=== PATIENT | male | born 1955 | race Caucasian/White ===

== ENCOUNTER 2019-07-09 13:30 | Inpatient (IN) | payer MEDICARE, OTHER ==
[~2019-07-09] VITALS: Ht 182.9 cm; Wt 83.1 kg
[2019-07-09] MEDS ORDERED: ASPI81TA85 PO (13:40)
[2019-07-09] MEDS ORDERED: AMLO10TA PO (13:40)
--- NOTE | 2019-07-09 14:27 | REP ---
Clinical: Possible acute cerebrovascular accident . Comparison: None . Findings: The ventricles, sulci, and cisterns are normal in position and appearance. Burr-white differentiation is maintained. No acute intracranial hemorrhage, mass/mass effect, pathology or trauma/injury. No evidence for acute infarction. No extra-axial fluid collection. Calvarium is intact. Paranasal sinuses and mastoid air cells are clear. Impression: Normal noncontrast head CT. No evidence for acute intracranial pathology or trauma/injury. Electronically Signed by Jose Luis Winston MD 07/09/2019 02:19 P
[2019-07-09 14:31] LABS: BASO # 0.1 10^3/uL (0.0-0.2); EOS # 0.1 10^3/uL (0.0-0.5); EOS % 1.6 % (0.0-3.0); HEMATOCRIT 44.6 % (42.0-52.0); HEMOGLOBIN 15.1 g/dl (13.5-17.5); LYMPH % 32.5 % (24.0-44.0); MEAN CORPUSCULAR HEMOGLOBIN 32.9 pg (27.0-33.0); MEAN CORPUSCULAR HGB CONC 33.9 g/dl (32.0-36.5); MEAN CORPUSCULAR VOLUME 97.2 fl (80.0-96.0); MONO # 0.5 10^3/uL (0.0-0.8); MONO % 8.5 % (0.0-5.0); NEUTROPHILS # 3.5 10^3/uL (1.5-8.5); NEUTROPHILS % 56.1 % (36.0-66.0); PLATELET COUNT, AUTOMATED 202 10^3/uL (150-450); RED BLOOD COUNT 4.59 10^6/uL (4.30-6.10); WHITE BLOOD COUNT 6.2 10^3/uL (4.0-10.0)
[2019-07-09 14:42] LABS: INR 1.05; PROTHROMBIN TIME 13.4 SECONDS (11.8-14.0)
[2019-07-09 14:43] LABS: PARTIAL THROMBOPLASTIN TIME 28.1 SECONDS (25.0-38.4)
[2019-07-09] MEDS ORDERED: ASPIRIN 325 MG TAB PO ONE (14:45)
--- NOTE | 2019-07-09 14:58 | REP ---
Clinical: Acute cerebrovascular accident . Comparison: None . Findings: The mediastinum and cardiac silhouette are stable and within normal limits for portable technique. The lung richardson are clear without acute consolidation, effusion, or pneumothorax. Skeletal structures are intact. Impression: No acute cardiopulmonary process appreciated. Electronically Signed by Jose Luis Winston MD 07/09/2019 02:50 P
[2019-07-09 15:11] LABS: BLOOD UREA NITROGEN 19 MG/DL (7-18); CALCIUM LEVEL 8.9 MG/DL (8.8-10.2); CARBON DIOXIDE LEVEL 28 MEQ/L (21-32); CHLORIDE LEVEL 104 MEQ/L (98-107); CK-MB VALUE MASS 1.8 NG/ML (<3.6); CPK CREATINE PHOSPHOKINASE 133 U/L (39-308); GLOMERULAR FILTRATION RATE > 60.0 (>49); GLUCOSE, FASTING 121 MG/DL (70-100); MB/CK RELATIVE INDEX 1.35 (< OR =4); POTASSIUM SERUM 3.8 MEQ/L (3.5-5.1); SODIUM LEVEL 139 MEQ/L (136-145); TROPONIN I < 0.02 NG/ML (< 0.10)
--- NOTE | 2019-07-09 16:50 | REPVR ---
EXAM: MR Head Without Contrast EXAM DATE/TIME: 07/09/2019 4:29 PM CLINICAL HISTORY: 64 years old, male; Numbness / parasthesia; Patient HX: Left arm numbness; Additional info: CVA TECHNIQUE: Imaging protocol: MR of the head without contrast. COMPARISON: CT Head without contrast 07/09/2019 2:09 PM FINDINGS: Brain: Multiple foci of T2 lengthening are demonstrated in the subcortical, periventricular and centrum semiovale white matter consistent with age-related small vessel gliosis. Increased signal in the subcortical and centrum semi-ovale white matter symmetrically and bilaterally and be seen in association with global white matter ischemia and should be correlated clinically. Ventricles: Normal. No ventriculomegaly. Bones/joints: Unremarkable. Soft tissues: Normal. Sinuses: Normal as visualized. No acute sinusitis. Mastoid air cells: Normal as visualized. No mastoid effusion. Orbits: Unremarkable. IMPRESSION: 1. Multiple foci of T2 lengthening are demonstrated in the subcortical, periventricular and centrum semiovale white matter consistent with age-related small vessel gliosis. 2. Increased signal in the subcortical and centrum semi-ovale white matter symmetrically and bilaterally and be seen in association with global white matter ischemia and should be correlated clinically. Electronically signed by: Niko Fatima On 07/09/2019 16:50:19 PM
--- NOTE | 2019-07-09 16:56 | REPVR ---
EXAM: MR Angiogram Head Without Contrast, Arteries EXAM DATE/TIME: 07/09/2019 4:21 PM CLINICAL HISTORY: 64 years old, male; Paralysis, transient of limb; Patient HX: Left arm numbness; Additional info: CVA TECHNIQUE: Imaging protocol: MR angiogram head without contrast. Exam focused on the arteries. 3D rendering: MIP reconstructed images were created and reviewed. COMPARISON: CT Head without contrast 07/09/2019 2:09 PM FINDINGS: Right internal carotid artery: Unremarkable. Intracranial segment is patent with no significant stenosis. No aneurysm. Right anterior cerebral artery: Unremarkable. No occlusion or significant stenosis. No aneurysm. Right middle cerebral artery: Unremarkable. No occlusion or significant stenosis. No aneurysm. Right posterior cerebral artery: Mild to moderate stenosis in the P1 segment of the right posterior cerebral artery. Right vertebral artery: Unremarkable. No occlusion or significant stenosis. No aneurysm. Left internal carotid artery: Unremarkable. Intracranial segment is patent with no significant stenosis. No aneurysm. Left anterior cerebral artery: Unremarkable. No occlusion or significant stenosis. No aneurysm. Left middle cerebral artery: Moderate stenosis in the distal M1 segment of the left middle cerebral artery. Left posterior cerebral artery: Unremarkable. No occlusion or significant stenosis. No aneurysm. Left vertebral artery: Unremarkable. No occlusion or significant stenosis. No aneurysm. Basilar artery: Unremarkable. No occlusion or significant stenosis. No aneurysm. IMPRESSION: 1. Mild to moderate stenosis in the P1 segment of the right posterior cerebral artery. 2. Moderate stenosis in the distal M1 segment of the left middle cerebral artery. Electronically signed by: Niko Fatima On 07/09/2019 16:55:58 PM
[2019-07-09] MEDS ORDERED: ENOXAPARIN 100MG/1ML SYRINGE (J1650) SC ONE (18:00)
--- NOTE | 2019-07-09 18:04 | HPEPDOC ---
General Date of Admission Date of Service: Jul 09, 2019 Chief Complaint The patient is a 64-year-old male admitted with a reason for visit of Arm Numbness. History of Present Illness 64m with sruthi and htn, presents with numbness. Pt reports transient numbness in his left arm and left face. This lasted about 5 minutes occurring just prior to arrival in the ED. He otherwise has been in good health. He is active with no difficulties exerting himself. He is a former smoker and drinks beer moderately. He denies chest pain, sob, palpitations, and edema. a full ROS was performed and negative except as above. Home Medications Scheduled Amlodipine Besylate (Norvasc) 10 Mg Tablet, 10 MG PO DAILY, (Reported) Aspirin (Aspir 81) 81 Mg Tablet.dr, 81 MG PO DAILY, (Reported) Allergies Coded Allergies: formaldehyde (Verified Allergy, Unknown, skin patch testing, 07/09/19) skin patch testing Family History Significant Family History: No pertinent family hx Social History * Smoker: former Smoker Alcohol: occationally Drugs: denies A-FIB/CHADSVASC A-FIB History Current/History of A-Fib/PAF?: Yes Current PO Anticoag Therapy: No Age/Risk Factor Scoring CHADSVASC: CHADSVASC Response (Comments) Value Age Risk Factor Age 65-74 years old 1 Gender Risk Factor Male 0 Hx of CHF No 0 Hx of HTN Yes 1 Hx of Stroke/TIA/or VTE Yes 2 Hx of Diabetes No 0 Hx of Vascular Disease No 0 Total 4 Treatment Treatment ordered: Heparin IV bridge Therapy Physical Examination General Exam: Positive: Alert, No Acute Distress Eye Exam: Positive: PERRLA, Conjunctiva & lids normal, EOMI; Negative: Sclera icteric ENT Exam: Positive: Atraumatic, Mucous membr. moist/pink, Pharynx Normal Neck Exam: Positive: Supple; Negative: JVD, thyromegaly Chest Exam: Positive: Clear to auscultation, Normal air movement Heart Exam: Positive: Rate Normal, Regular Rhythm, Normal S1, Normal S2; Negative: Murmurs, Rubs Telemetry: Positive: No significant arrhythmia Abdomen Exam: Positive: Normal bowel sounds, Soft; Negative: Tenderness, Hepatospenomegaly Extremity Exam: Positive: Normal pulses; Negative: Clubbing, Cyanosis, Edema Skin Exam: Positive: Nl turgor and temperature; Negative: Breakdown, Lesion Neuro Exam: Positive: Normal Gait, Normal Speech, Cranial Nerves 3-12 NL, Reflexes 2+ Psych Exam: Positive: Mental status NL, Mood NL, Oriented x 3 Vital Signs Vital Signs Date Time Temp Pulse Resp B/P (MAP) Pulse Ox O2 Delivery O2 Flow Rate FiO2 07/09/19 16:50 81 99 07/09/19 16:49 139/75 (96) 07/09/19 13:31 97.6 16 Room Air Laboratory Data Labs 24H Laboratory Tests 2 07/09/19 14:18: Immature Granulocyte % (Auto) 0.3, White Blood Count 6.2, Red Blood Count 4.59, Hemoglobin 15.1, Hematocrit 44.6, Mean Corpuscular Volume 97.2H, Mean Corpuscular Hemoglobin 32.9, Mean Corpuscular Hemoglobin Concent 33.9, Red Cell Distribution Width 13.1, Platelet Count 202, Neutrophils (%) (Auto) 56.1, Lymph ocytes (%) (Auto) 32.5, Monocytes (%) (Auto) 8.5H, Eosinophils (%) (Auto) 1.6, Basophils (%) (Auto) 1.0, Neutrophils # (Auto) 3.5, Lymphocytes # (Auto) 2.0, Monocytes # (Auto) 0.5, Eosinophils # (Auto) 0.1, Basophils # (Auto) 0.1, Nucleated Red Blood Cells % (auto) 0.0, Prothrombin Time 13.4, Prothromb Time International Ratio 1.05, Activated Partial Thromboplast Time 28.1, Bedside Glucose (Misc Panel) 111, Anion Gap 7L, Glomerular Filtration Rate > 60.0, Blood Urea Nitrogen 19H, Creatinine 1.00, Sodium Level 139, Potassium Level 3.8, Chloride Level 104, Carbon Dioxide Level 28, Calcium Level 8.9, Total Creatine Kinase 133, Creatine Kinase MB 1.8, Creatine Kinase MB Relative Index 1.35, Trop onin I < 0.02 CBC/BMP Laboratory Tests 07/09/19 14:18 Red Blood Count 4.59, Mean Corpuscular Volume 97.2 H, Mean Corpuscular Hemoglobin 32.9, Mean Corpuscular Hemoglobin Concent 33.9, Red Cell Distribution Width 13.1, Neutrophils (%) (Auto) 56.1, Lymphocytes (%) (Auto) 32.5, Monocytes (%) (Auto) 8.5 H, Eosinophils (%) (Auto) 1.6, Basophils (%) (Auto) 1.0, Neutrophils # (Auto) 3.5, Lymphocytes # (Auto) 2.0, Monocytes # (Auto) 0.5, Eosinophils # (Auto) 0.1, Basophils # (Auto) 0.1, Calcium Level 8.9, Total Creatine Kinase 133 Assessment/Plan 64m p/w TIA TIA symptoms have resolved CT and MRI unremarkable will check echo and carotid US check lipid panel and a1c cardiac monitoring neurochecks ABCD2=2 (low risk) consider statin after lipid panel is drawn new onset afib asymptomatic rate controlled without any intervention CHADS-Vasc=4 started on lovenox, conver to oral agent prior to dc echo and tsh pending htn holding norvasc for now Plan / VTE VTE Prophylaxis Ordered?: Yes TITI JEAN BAPTISTE MD Jul 09, 2019 18:04
--- NOTE | 2019-07-09 19:37 | ECGEPIP ---
[facility] - ED Test Date: 2019-07-09 Pat Name: ANETA MOSCOSO Department: Room: - Gender: Male Civil Design Technician: dedrick : [id number] Requested By: VANDANA Lock Order Number: [id number] Reading MD: Lissett Vallecillo Measurements Intervals [place] Rate: 80 P: AR: 0 QRS: 70 QRSD: 101 T: 48 QT: 367 QTc: 426 Interpretive Statements ATRIAL FIBRILLATION POSSIBLE RIGHT VENTRICULAR CONDUCTION DELAY ABNORMAL RHYTHM ECG NO PRIOR Electronically Signed on 07-09-2019 19:37:13 EDT by Lissett Vallecillo
[2019-07-09 20:00] VITALS: BP 143/78
[2019-07-10 04:00] VITALS: BP 139/76
[2019-07-10 05:44] LABS: BASO # 0.1 10^3/uL (0.0-0.2); BASO % 0.9 % (0.0-1.0); EOS # 0.2 10^3/uL (0.0-0.5); EOS % 2.5 % (0.0-3.0); HEMATOCRIT 45.3 % (42.0-52.0); HEMOGLOBIN 15.1 g/dl (13.5-17.5); LYMPH # 2.9 10^3/uL (1.5-5.0); LYMPH % 43.3 % (24.0-44.0); MEAN CORPUSCULAR HEMOGLOBIN 32.8 pg (27.0-33.0); MEAN CORPUSCULAR HGB CONC 33.3 g/dl (32.0-36.5); MEAN CORPUSCULAR VOLUME 98.5 fl (80.0-96.0); MONO # 0.6 10^3/uL (0.0-0.8); PLATELET COUNT, AUTOMATED 207 10^3/uL (150-450); WHITE BLOOD COUNT 6.8 10^3/uL (4.0-10.0)
[2019-07-10 06:07] LABS: HEMOGLOBIN A1c 5.7 %
[2019-07-10 06:14] LABS: BLOOD UREA NITROGEN 20 MG/DL (7-18); CALCIUM LEVEL 8.4 MG/DL (8.8-10.2); CARBON DIOXIDE LEVEL 31 MEQ/L (21-32); CHLORIDE LEVEL 107 MEQ/L (98-107); CHOLESTEROL LEVEL 195 MG/DL (<200); CREATININE FOR GFR 1.05 MG/DL (0.70-1.30); GLOMERULAR FILTRATION RATE > 60.0 (>49); GLUCOSE, FASTING 100 MG/DL (70-100); HDL CHOLESTEROL 50 MG/DL (>40); LDL CHOLESTEROL 114 MG/DL (<100); NON-HDL-C 145 MG/DL; POTASSIUM SERUM 4.2 MEQ/L (3.5-5.1); SODIUM LEVEL 142 MEQ/L (136-145); TRIGLYCERIDES LEVEL 153 MG/DL (<150)
[2019-07-10] MEDS: ENOXAPARIN 80 MG/0.8 ML SYRINGE (J1650) SC SCH ×2 (06:35→17:29)
--- NOTE | 2019-07-10 07:30 | REPVR ---
Arterial ultrasound of the extracerebral carotid and vertebral arteries Clinical indication: TIA Technique: Real-time ultrasound with oleary scale, duplex Doppler, and color flow imaging was performed to evaluate the extracerebral carotid and vertebral arteries. No prior vascular imaging studies are available for correlation at the time of dictation. Findings: Asymmetric plaque formation in the carotid arteries, right greater than left. Mild intimal thickening. There is normal antegrade flow within the vertebral arteries bilaterally. The peak systolic velocity measurements within the right and left internal carotid arteries are 78 and 69 cm per second respectively. The right systolic velocity ratio is 1.37, while the left systolic velocity ratio is 1.36. When correlating with NASCET index criteria, no hemodynamically significant stenosis is present. Impression: 1. Asymmetric plaque formation within the carotid arteries, without hemodynamically significant ICA stensosis. 2. Normal antegradew flow within the vertebral arteries. Electronically signed by: Jamaal Segal On 07/10/2019 07:29:49 AM
[2019-07-10 08:00] VITALS: BP 133/78
--- NOTE | 2019-07-10 09:36 | IPNPDOC ---
Text Note Date of Service The patient was seen on 07/10/19. NOTE Subjective: Patient seen and examined at bedside. Symptoms resolved. Objective: General: NAD, lying comfortably in bed HEENT: NC/AT, EOMI Lungs: CtA b/L Heart: +S1S2, irregular Abd: soft, NT, +BS Ext: no edema Neuro: no gross focal deficits A/P: 64 yo male with transient left sided focal neurologic deficits, resolved, found to be in afib. #TIA - echo pending - lovenox for now - transition to DOAC on discharge - neuro c/s pending - PT/OT #afib - as above, pending echo, lovenox for a/c #HTN - norvasc on hold for today #dyslipidemia - patient states he was taking a half tab of unknown statin for past 3 months, last dose June 02 - resume statin therapy #DVT prophylaxis - as above - therapeutic lovenox for now VS,Fishbone, I+O VS, Fishbone, I+O Laboratory Tests 07/09/19 14:18 Red Blood Count 4.59, Mean Corpuscular Volume 97.2 H, Mean Corpuscular Hemoglobin 32.9, Mean Corpuscular Hemoglobin Concent 33.9, Red Cell Distribution Width 13.1, Neutrophils (%) (Auto) 56.1, Lymphocytes (%) (Auto) 32.5, Monocytes (%) (Auto) 8.5 H, Eosinophils (%) (Auto) 1.6, Basophils (%) (Auto) 1.0, Neutrophils # (Auto) 3.5, Lymphocytes # (Auto) 2.0, Monocytes # (Auto) 0.5, Eosinophils # (Auto) 0.1, Basophils # (Auto) 0.1, Calcium Level 8.9, Total Creatine Kinase 133 07/10/19 05:04 Red Blood Count 4.60, Mean Corpuscular Volume 98.5 H, Mean Corpuscular Hemoglobin 32.8, Mean Corpuscular Hemoglobin Concent 33.3, Red Cell Distribution Width 13.3, Neutrophils (%) (Auto) 44.0, Lymphocytes (%) (Auto) 43.3, Monocytes (%) (Auto) 9.0 H, Eosinophils (%) (Auto) 2.5, Basophils (%) (Auto) 0.9, Neutrophils # (Auto) 3.0, Lymphocytes # (Auto) 2.9, Monocytes # (Auto) 0.6, Eosinophils # (Auto) 0.2, Basophils # (Auto) 0.1 Vital Signs Date Time Temp Pulse Resp B/P (MAP) Pulse Ox O2 Delivery O2 Flow Rate FiO2 07/10/19 08:00 97.3 67 20 133/78 (96) 96 07/09/19 13:31 Room Air WILL SAXENA MD Jul 10, 2019 09:36
[2019-07-10 12:00] VITALS: BP 144/80
[2019-07-10 16:00] VITALS: BP 124/74
[2019-07-10 20:00] VITALS: BP 159/85
--- NOTE | 2019-07-10 20:46 | CR ---
DATE OF CONSULTATION: 07/10/2019 REFERRING PHYSICIAN: Dr. Klever Jim REASON FOR CONSULTATION: Transient ischemic attack. HISTORY OF PRESENT ILLNESS: Carlitos Ramachandran is a 64-year-old man with history of sleep apnea, hypertension, who was at baseline state of health until yesterday when he suddenly developed left-sided facial and arm numbness and tingling which lasted for 5 minutes and improved on its own. He denies having any palpitations recently. The patient states that when he was in he had palpitations and had Holter monitor, it was in early 1980s, roughly 35 years ago. It was normal at that time. He had health physical for police department in 2014 and 2016 and had EKG which was unremarkable. He denies having TIA or heart palpitations in past. He denies any weakness, trouble with his speech, balance, weakness of his arms and legs headaches, neck or back pain. He denies any dysphagia, dysarthria, diplopia or falls or loss of consciousness. He came to emergency department and was found to have new-onset atrial fibrillation. His Telemetry still shows Atrial Fibrillation. He was started on Lovenox 80 mg subcutaneous twice a day which will be changed to Eliquis by the time of his discharge. DIAGNOSTIC STUDIES: MRI scan of brain showed bilateral small vessel ischemic disease of brain without acute disease. MRA brain showed moderate left middle cerebral artery and mild to moderate right posterior cerebral artery stenosis. Carotid ultrasound showed mild carotid artery atherosclerosis. PAST MEDICAL HISTORY: Hypertension, dyslipidemia for which he was on a statin in past. HOME MEDICATIONS: - aspirin 81 mg by mouth - amlodipine 10 mg by mouth daily ALLERGIES: FORMALDEHYDE. SOCIAL HISTORY: He smoked one-pack per day for 35 years and quit in 2010. FAMILY HISTORY: He was adopted. REVIEW OF SYSTEMS: All systems were reviewed and found to be noncontributory except as mentioned in history of present illness. PHYSICAL EXAMINATION: Blood pressure 133/78, 96% saturation on room air, respiratory rate 20, pulse 67, temperature 97.3, heart irregularly irregular. Lungs: Clear to auscultation. Abdomen: Soft, nontender, nondistended. No pedal edema. No musculoskeletal abnormalities. No rash. No signs of meningeal irritation. The patient is awake, alert, oriented to place, person and time. Normal speech comprehension and repetition. Extraocular muscles are intact. No facial weakness. Tongue and uvula are midline. 5/5 strength in all four extremities. Deep tendon reflexes are 2+ throughout. Normal sensation. Gait is normal. ASSESSMENT: 1. Transient ischemic attack. 2. New-onset atrial fibrillation. 3. Small vessel ischemic disease of brain. 4. Moderate left MCA and mild to moderate right GRIP WRAPPER stenosis. PLAN: 1. Continue aspirin 81 mg by mouth daily and add Lipitor 20 mg by mouth daily. His LDL was 114 and HDL was 50. 2. Continue Lovenox 80 mg subcutaneous twice a day and it will be changed to Eliquis 5 mg by mouth twice a day at the time of discharge. 3. Follow with our office in 3-4 weeks after hospital discharge. ROSHAN
[2019-07-10] MEDS ORDERED: ATORVASTATIN 20 MG TAB PO SCH (21:00)
[2019-07-10 23:59] VITALS: BP 138/74
[2019-07-11 04:00] VITALS: BP 137/79
--- NOTE | 2019-07-11 06:13 | ECHO ---
DATE OF PROCEDURE: 07/10/2019 DATE OF : 1955 AGE: 64 GENDER: Male HEIGHT: 72 inches WEIGHT: 187 pounds BODY SURFACE AREA: 2.07 m2 REFERRING PHYSICIAN: Dr. Gerardo Cotto INPATIENT: U - Room 3223 INDICATION: Atrial fibrillation. MEASUREMENTS 2-D Measurements: RV: 3.9 cm LV: 4.9 cm Septum: 1.2 cm Posterior wall: 1.2 cm Aortic root: 3.5 cm LA: 4.2 cm LVEF: 60-65% Doppler Measurements: AV: 1.3 m/s LVOT: 0.8 m/s MV - E 93 Early mitral deceleration time: 222 ms E prime: 10.2 E/E prime ratio: 9.1 PCWP: 13 mmHg PV: 0.8 m/s Pulmonary artery acceleration time: 100 ms RVSP: 37 mmHg IVC: 1.4 cm COMMENTS: Underlying atrial fibrillation with controlled ventricular response. No intraventricular conduction disturbance. M-mode and two-dimensional echocardiography was performed with pulsed, continuous wave, color flow and tissue Doppler studies. Borderline concentric left ventricular hypertrophy with preserved systolic function. Mildly dilated left atrium with prolonged early mitral deceleration time suggestive of an impairment of LV diastolic relaxation, but currently normal estimated mean left atrial pressure. Normal right ventricular size and wall motion with Doppler evidence of mild pulmonary hypertension. Slightly dilated right ventricle, but normal IVC size and collapse against an elevated central venous pressure. Mild aortic valvular sclerosis without stenosis and only trace insufficiency. Slightly thickened mitral valvular apparatus, but no restriction of leaflet excursion and no posterior systolic buckling. Mild mitral insufficiency. Normal appearing tricuspid valve with mild insufficiency. Normal aortic root dimensions. No apparent intracardiac mass or pericardial effusion.
[2019-07-11] MEDS: ENOXAPARIN 80 MG/0.8 ML SYRINGE (J1650) SC SCH (06:24)
[2019-07-11] MEDS ORDERED: ELIQ5TAB PO ×2 (07:04→10:22)
[2019-07-11] MEDS ORDERED: ATOR1TAB21 PO ×2 (07:04→10:22)
[2019-07-11 08:00] VITALS: BP 135/77
--- NOTE | 2019-07-11 12:18 | DS.PDOC ---
Discharge Summary General Date of Admission Jul 09, 2019 at 17:33 Date of Discharge 07/11/19 Specialist/Consultants Involve: ALISE COYLE MD Discharge Summary PROCEDURES PERFORMED DURING STAY: [None]. ADMITTING DIAGNOSES: 1. TIA DISCHARGE DIAGNOSES: 1. Transient ischemic attack. 2. New-onset atrial fibrillation. 3. Small vessel ischemic disease of brain. 4. Moderate left MCA and mild to moderate right EL TEACHER stenosis. 5. Dyslipidemia 6. HTN 7. ANA MARIA COMPLICATIONS/CHIEF COMPLAINT: New Onset Afibn/Tia. HISTORY OF PRESENT ILLNESS: 64m with ana maria and htn, presents with numbness. Pt reports transient numbness in his left arm and left face. This lasted about 5 minutes occurring just prior to arrival in the ED. He otherwise has been in good health. He is active with no difficulties exerting himself. He is a former smoker and drinks beer moderately. He denies chest pain, sob, palpitations, and edema. HOSPITAL COURSE: MRI imaging revealed small vessel ischemic disease with moderate left MCA and right EL TEACHER stenosis. Found to be in new afib. Seen in consultation by neurology. Echo with no acute pathology. Labs showed dyslipidemia. previously was taking trial of statin. Discharged home with outpatient follow up. DISCHARGE MEDICATIONS: Please see below. ALLERGIES: Please see below. PHYSICAL EXAMINATION ON DISCHARGE: VITAL SIGNS: Please see below. General: NAD, lying comfortably in bed HEENT: NC/AT, EOMI Lungs: CtA b/L Heart: +S1S2, irregular Abd: soft, NT, +BS Ext: no edema Neuro: no gross focal deficits LABORATORY DATA: Please see below. ACTIVITY: [As tolerated]. DISPOSITION: 01 Home, Self-Care. DISCHARGE INSTRUCTIONS: 1. Follow up PCP in 3-5 days 2. Follow up neurology Dr. Coyle in 3-4 weeks DISCHARGE CONDITION: [Stable]. TIME SPENT ON DISCHARGE: 35 minutes. Vital Signs/I&Os Vital Signs Date Time Temp Pulse Resp B/P (MAP) Pulse Ox O2 Delivery O2 Flow Rate FiO2 07/11/19 08:00 97.5 66 16 135/77 (96) 96 07/09/19 13:31 Room Air I&O- Last 24 Hours up to 6 AM 07/11/19 05:59 Intake Total 958 ml Output Total 200 ml Balance 758 ml Discharge Medications Scheduled Amlodipine Besylate (Norvasc) 10 Mg Tablet, 10 MG PO DAILY, (Reported) Apixaban (Eliquis) 5 Mg Tablet, 1 TAB PO BID Aspirin (Aspir 81) 81 Mg Tablet.dr, 81 MG PO DAILY, (Reported) Atorvastatin Calcium (Atorvastatin Calcium) 20 Mg Tablet, 1 TAB PO DAILY Allergies Coded Allergies: formaldehyde (Verified Allergy, Unknown, skin patch testing, 07/09/19) skin patch testing WILL SAXENA MD Jul 11, 2019 12:18
[2019-07-11] MEDS ORDERED: APIXABAN 5 MG TAB (ELIQUIS) PO SCH (21:00)
== END 2019-07-11 11:30 | disposition home or self-care (01) | DRG 309 ==
LOC: M ED 13:30 → M ED INP 17:33 → M PCU 19:51
PROVIDERS: ADMIT Hospitalist; ATTEND Internal Medicine
DX: I48.91 Unspecified atrial fibrillation (principal); G45.9 Transient cerebral ischemic attack, unspecified; I67.82 Cerebral ischemia; G47.33 Obstructive sleep apnea (adult) (pediatric); I67.2 Cerebral atherosclerosis; E78.5 Hyperlipidemia, unspecified; I10 Essential (primary) hypertension; Z87.891 Personal history of nicotine dependence; Z79.82 Long term (current) use of aspirin; Z88.8 Allergy status to other drugs, medicaments and biological substances; Z79.899 Other long term (current) drug therapy

== ENCOUNTER 2019-10-18 15:09 | Emergency (ER) | payer MEDICARE, OTHER ==
[~2019-10-18] VITALS: Ht 182.9 cm; Wt 84.5 kg
[~2019-10-18 15:09] MED LIST: AMLO10TA PO; ASPI81TA85 PO; ATOR1TAB21 PO; ELIQ5TAB PO
[2019-10-18] MEDS ORDERED: LIDOCAINE 2% MDV 20 ML VIAL SC ONE (17:00)
[2019-10-18] MEDS ORDERED: KEFL500C17 PO (18:04)
[2019-10-18 18:11] VITALS: BP 132/92
[2019-10-18] MEDS ORDERED: CEPHALEXIN 500 MG CAP PO ONE (18:15)
--- NOTE | 2019-10-18 19:38 | REP ---
REASON: Trauma to the 3rd and 5th digits. I see no evidence of definite acute fracture. There is evidence of soft-tissue injury to the fingertips. This needs to be correlated clinically. There are what appear to be chronic changes involving the tuft of the 4th digit which is not an area of clinical concern as per history given in the patient's synapse power jacket. IMPRESSION:As above. No evidence of acute osseous abnormality. Electronically Signed by Rodo Deleon DO 10/19/2019 11:32 A
== END 2019-10-18 18:12 | disposition home or self-care (01) ==
LOC: M ED 15:09
DX: S61.217A Laceration without foreign body of left little finger without damage to nail, initial encounter (principal); S56.421A Laceration of extensor muscle, fascia and tendon of right index finger at forearm level, initial encounter; W26.8XXA Contact with other sharp object(s), not elsewhere classified, initial encounter; Y92.018 Other place in single-family (private) house as the place of occurrence of the external cause; Z79.899 Other long term (current) drug therapy; Z79.01 Long term (current) use of anticoagulants; Z88.8 Allergy status to other drugs, medicaments and biological substances

== ENCOUNTER → 2020-03-05 | Outpatient (CLI) | payer MEDICARE, OTHER ==
[~2020-03-05] MED LIST changes: +KEFL500C17 PO
--- NOTE | 2020-03-09 09:02 | SLEEPCENT ---
DATE OF PROCEDURE: 03/05/2020 ORDERED BY: PALMER Wild Nocturnal polysomnography was performed for the titration of pressure therapy in this patient with a history of obstructive sleep apnea syndrome. Apnea-hypopnea index 37.8. For testing a ResMed nasal gel mask of medium size was used; 7 cm of water pressure were applied to the circuit and the lights were extinguished. 7 hours and 30 minutes of data were reviewed. There were 320 minutes of sleep identified. Sleep latency was mildly prolonged at 34 minutes. Rapid eye movement (REM) latency was short at 65.5 minutes. Sleep architecture was good with 5 REM cycles. Overall sleep efficiency was 71.8%. The patient's electrocardiogram showed atrial fibrillation with an average heart rate of 56 beats per minute. Rate ranged 40-80. Electroencephalogram (EEG) showed normal waveforms for awake and sleep. Respiratory events were fully palliated with CPAP at a pressure of +7 with some activity noted in the limb leads, 2 trains of 30 events. The limb movement arousal index was 7.1. IMPRESSION: Obstructive sleep apnea syndrome (G47.33). RECOMMENDATIONS: Nightly use of pressure therapy 7 cm of water.
== END ==
LOC: M SLEEP 20:00
PROVIDERS: ATTEND Nurse Practitioner Family
DX: G47.33 Obstructive sleep apnea (adult) (pediatric) (principal)

== ENCOUNTER → 2021-12-27 | Outpatient (CLI) | payer OTHER ==
[~2021-12-27] MED LIST changes: +ASPI81TA26 PO; -ASPI81TA85 PO; +ASPI81TA86 PO; +ATOR80TA59 PO
== END ==
LOC: M LABSMTC 09:34
PROVIDERS: ATTEND Anesthesiology
DX: Z01.812 Encounter for preprocedural laboratory examination (principal); Z20.822 Contact with and (suspected) exposure to COVID-19

== ENCOUNTER 2022-01-01 07:47 | Day surgery (SDC) | payer OTHER ==
[~2022-01-01] VITALS: Ht 182.9 cm; Wt 85.3 kg
[~2022-01-01 07:47] MED LIST changes: +NS 1,000 ML IV ONE
[2022-01-01] MEDS ORDERED: LIDOCAINE 2% 100MG/5ML SDV (FOR ANES.) As Ordered ONE (09:00)
[2022-01-01] MEDS ORDERED: propofoL 200 MG/20 ML VIAL As Ordered ONE (09:00)
[2022-01-01] MEDS ORDERED: GLYCOPYRROLATE INJ 0.2 MG/ML 2 ML VIAL As Ordered ONE (09:33)
[2022-01-01 10:45] VITALS: BP 126/75
== END 2022-01-01 11:02 | disposition home or self-care (01) ==
LOC: M OPP 07:47
PROVIDERS: ATTEND Surgery
DX: Z12.11 Encounter for screening for malignant neoplasm of colon (principal); K63.5 Polyp of colon; K57.30 Diverticulosis of large intestine without perforation or abscess without bleeding; K64.1 Second degree hemorrhoids; Z79.82 Long term (current) use of aspirin; Z79.899 Other long term (current) drug therapy; Z87.891 Personal history of nicotine dependence

== ENCOUNTER → 2022-12-31 | Outpatient (REF) | payer OTHER ==
[~2022-12-31] MED LIST changes: -NS 1,000 ML IV ONE
[2022-12-31 16:23] LABS: APPEARANCE, URINE CLEAR (CLEAR); BACTERIA, URINE AUTO NEGATIVE (NEGATIVE); BILIRUBIN, URINE AUTO NEGATIVE (NEGATIVE); BLOOD, URINE BLOOD NEGATIVE (NEGATIVE); COLOR, URINE YELLOW (YELLOW); GLUCOSE, URINE (UA) AUTO NEGATIVE (NEGATIVE); KETONE, URINE AUTO NEGATIVE (NEGATIVE); LEUKOCYTE ESTERASE, URINE AUTO NEGATIVE (NEGATIVE); MUCUS, URINE SMALL (NEGATIVE); NITRITE, URINE AUTO NEGATIVE (NEGATIVE); PROTEIN, URINE AUTO NEGATIVE (NEGATIVE); RBC, URINE AUTO 1 /HPF (0-3); SPECIFIC GRAVITY URINE AUTO 1.018 (1.002-1.035); SQUAMOUS EPITHELIAL CELL UR AU 0 /HPF (0-6); UROBILINOGEN, URINE AUTO 0.2 mg/dL (0.0-2.0); WBC, URINE AUTO 0 /HPF (0-3)
== END ==
LOC: M SMT 13:09
PROVIDERS: ATTEND Nurse Practitioner Women's Health
DX: R31.29 Other microscopic hematuria (principal)
CPT/HCPCS: 81001; 87086; G0463

== ENCOUNTER 2025-02-06 08:57 | Emergency (ER) | payer OTHER, MEDICARE ==
[~2025-02-06] VITALS: Ht 182.9 cm; Wt 84.0 kg
[2025-02-06] MEDS ORDERED: CYAN1000VL (10:23)
[2025-02-06] MEDS ORDERED: TRIA1CR80 TOP (10:24)
[2025-02-06] MEDS ORDERED: CLOB5CR TOP (11:56)
[2025-02-06] MEDS ORDERED: PRED10TA2 PO (11:56)
[2025-02-06] MEDS ORDERED: CEPH500C PO (11:56)
[2025-02-06 12:22] VITALS: BP 126/83; TEMP 97.6; O2SAT 97
== END 2025-02-06 12:24 | disposition home or self-care (01) ==
LOC: M ED 08:57
DX: L20.89 Other atopic dermatitis (principal); I10 Essential (primary) hypertension; Z88.8 Allergy status to other drugs, medicaments and biological substances; Z79.01 Long term (current) use of anticoagulants; Z79.899 Other long term (current) drug therapy; Z79.52 Long term (current) use of systemic steroids

== ENCOUNTER → 2025-02-16 | Outpatient (CLI) | payer OTHER, MEDICARE ==
[~2025-02-16] MED LIST changes: +CEPH500C PO; +CLOB5CR TOP; +CYAN1000VL; +PRED10TA2 PO; +TRIA1CR80 TOP
== END ==
LOC: M CARPUL 14:57
PROVIDERS: ATTEND Internal Medicine Cardiovascular Disease
DX: I34.0 Nonrheumatic mitral (valve) insufficiency (principal)

== ENCOUNTER 2025-02-21 17:16 | Emergency (ER) | payer MEDICARE, OTHER ==
[~2025-02-21 17:16] MED LIST changes: +AMLO-751 PO; -AMLO10TA PO
[2025-02-21 18:15] LABS: BASO # 0.1 10^3/uL (0.0-0.2); BASO % 0.4 % (0.0-1.0); EOS # 0.1 10^3/uL (0.0-0.5); EOS % 0.7 % (0.0-3.0); HEMOGLOBIN 15.6 g/dl (13.5-17.5); LYMPH # 1.2 10^3/uL (1.5-5.0); MEAN CORPUSCULAR HEMOGLOBIN 31.1 pg (27.0-33.0); MEAN CORPUSCULAR HGB CONC 32.5 g/dl (32.0-36.5); MEAN CORPUSCULAR VOLUME 95.6 fl (80.0-96.0); MONO % 5.8 % (2.0-8.0); NEUTROPHILS # 14.3 10^3/uL (1.5-8.5); NEUTROPHILS % 85.4 % (36.0-66.0); PLATELET COUNT, AUTOMATED 227 10^3/uL (150-450); RED BLOOD COUNT 5.02 10^6/uL (4.30-6.10); WHITE BLOOD COUNT 16.8 10^3/uL (4.0-10.0)
[2025-02-21] MEDS ORDERED: NITROGLYCERIN 0.4MG SUBL TABLET SL PRN (18:25)
[2025-02-21 18:29] LABS: INR 1.14; PARTIAL THROMBOPLASTIN TIME 30.4 SECONDS (24.8-34.2); PROTHROMBIN TIME 14.9 SECONDS (12.5-14.5)
[2025-02-21] MEDS: ASPIRIN 81MG CHEW TABLET PO ONE (18:31)
[2025-02-21 18:42] LABS: LIPASE 26 U/L (12-53)
[2025-02-21 18:44] LABS: ALKALINE PHOSPHATASE 136 U/L (40-129); ALT/SGPT 31 U/L (7.0-40); AST/SGOT 20 U/L (<34); BILIRUBIN,DIRECT 0.2 MG/DL (<0.4); BILIRUBIN,TOTAL 0.7 MG/DL (0.3-1.2); BLOOD UREA NITROGEN 14 MG/DL (9-23); CALCIUM LEVEL 8.9 MG/DL (8.3-10.6); CARBON DIOXIDE LEVEL 29 MMOL/L (20-31); CHLORIDE LEVEL 101 MMOL/L (98-107); CPK CREATINE PHOSPHOKINASE 99 U/L (46-171); CREATININE FOR GFR 0.87 MG/DL (0.70-1.30); GLOMERULAR FILTRATION RATE > 90.0 (>42); GLUCOSE, FASTING 119 MG/DL (74-106); MB/CK RELATIVE INDEX 1.01 (< OR =4); POTASSIUM SERUM 3.7 MMOL/L (3.5-5.1); SODIUM LEVEL 140 MMOL/L (136-145); TOTAL PROTEIN 7.8 G/DL (5.7-8.2)
[2025-02-21 18:46] LABS: THYROID STIMULATING HORMONE 1.251 uIU/ML (0.55-4.78)
[2025-02-21 18:47] LABS: FREE T4 1.14 NG/DL (0.89-1.76)
[2025-02-21] MEDS ORDERED: ISOVUE-370 76% 100ML VIAL As Ordered ONE (19:02)
[2025-02-21 19:33] LABS: CK-MB VALUE MASS < 1.0 NG/ML (<3.6)
[2025-02-21 19:34] LABS: CPK CREATINE PHOSPHOKINASE 88 U/L (46-171); MB/CK RELATIVE INDEX 1.13 (< OR =4)
[2025-02-21 21:30] VITALS: O2SAT 97
[2025-02-21 21:35] VITALS: BP 133/67; TEMP 98.1
== END 2025-02-21 21:43 | disposition home or self-care (01) ==
LOC: M ED 17:16
DX: R07.9 Chest pain, unspecified (principal); I48.91 Unspecified atrial fibrillation; G47.33 Obstructive sleep apnea (adult) (pediatric); Z87.891 Personal history of nicotine dependence; Z88.8 Allergy status to other drugs, medicaments and biological substances; Z79.2 Long term (current) use of antibiotics; Z79.01 Long term (current) use of anticoagulants; Z79.52 Long term (current) use of systemic steroids; Z79.899 Other long term (current) drug therapy
CPT/HCPCS: 36415; 71045; 71275; 80048; 80076; 82550; 82553; 83690; 84439; 84443; 84484; 85025; 85610; 85730; 93005; 93041; 94760; 99285; Q9967